=== PATIENT | female | born 1955 | race Caucasian/White ===

== ENCOUNTER → 2024-02-05 14:29 | Outpatient (REF) | payer OTHER, SELFPAY | LOC: HWWDC 14:29 | PROVIDERS: ATTENDING PHYSICIAN Nurse Practitioner | DX: Z12.31 Encounter for screening mammogram for malignant neoplasm of breast (principal) | CPT/HCPCS: 77063; 77067 ==

== ENCOUNTER → 2024-02-24 08:53 | Outpatient (REF) | payer OTHER, SELFPAY | LOC: RAD 08:53 | PROVIDERS: ATTENDING PHYSICIAN Nurse Practitioner | DX: Z13.820 Encounter for screening for osteoporosis (principal) | CPT/HCPCS: 77080 ==

== ENCOUNTER → 2024-03-01 10:57 | Outpatient (REF) | payer OTHER, SELFPAY | LOC: RAD 10:57 | PROVIDERS: ATTENDING PHYSICIAN Physician Assistant Medical; FAMILY PHYSICIAN Internal Medicine | DX: S82.132A Displaced fracture of medial condyle of left tibia, initial encounter for closed fracture (principal); S82.122A Displaced fracture of lateral condyle of left tibia, initial encounter for closed fracture | CPT/HCPCS: 73700 ==

== ENCOUNTER 2024-06-23 10:32 | Outpatient (RCR) | payer OTHER, SELFPAY ==
[2024-06-23] MEDS: LEQVIO 284 MG SC (10:43)
[2024-06-23 10:45] VITALS: BP 114/66
== END 2024-06-24 09:07 | disposition home or self-care (01) ==
LOC: OID 10:32
PROVIDERS: ATTENDING PHYSICIAN Nurse Practitioner; FAMILY PHYSICIAN Internal Medicine
DX: I65.22 Occlusion and stenosis of left carotid artery (principal); I25.10 Atherosclerotic heart disease of native coronary artery without angina pectoris; Z86.73 Personal history of transient ischemic attack (TIA), and cerebral infarction without residual deficits
CPT/HCPCS: 96372; J1306

== ENCOUNTER → 2025-01-19 10:51 | Outpatient (REF) | payer MEDICARE, SELFPAY | LOC: PAVMRI 10:51 | PROVIDERS: ATTENDING PHYSICIAN Physician Assistant Medical; FAMILY PHYSICIAN Internal Medicine | DX: M25.562 Pain in left knee (principal) | CPT/HCPCS: 73721 ==

== ENCOUNTER → 2025-03-17 12:42 | Outpatient (REF) | payer MEDICARE, SELFPAY | LOC: HWRCS 12:42 | PROVIDERS: ATTENDING PHYSICIAN Nurse Practitioner; FAMILY PHYSICIAN Internal Medicine | DX: E78.2 Mixed hyperlipidemia (principal); R06.09 Other forms of dyspnea; R53.83 Other fatigue; R60.0 Localized edema; I34.0 Nonrheumatic mitral (valve) insufficiency; I35.0 Nonrheumatic aortic (valve) stenosis | CPT/HCPCS: 93306 ==

== ENCOUNTER → 2025-03-28 08:28 | Outpatient (REF) | payer MEDICARE, SELFPAY | LOC: HWWDC 08:28 | PROVIDERS: ATTENDING PHYSICIAN Nurse Practitioner; FAMILY PHYSICIAN Internal Medicine | DX: Z12.31 Encounter for screening mammogram for malignant neoplasm of breast (principal) | CPT/HCPCS: 77063; 77067 ==

== ENCOUNTER → 2025-04-14 10:34 | Outpatient (REF) | payer MEDICARE, SELFPAY | LOC: RAD 10:34 | PROVIDERS: ATTENDING PHYSICIAN Physician Assistant Surgical; FAMILY PHYSICIAN Hospitalist | DX: M54.6 Pain in thoracic spine (principal); M54.14 Radiculopathy, thoracic region | CPT/HCPCS: 72072 ==

== ENCOUNTER → 2025-04-28 08:23 | Outpatient (REF) | payer MEDICARE, SELFPAY ==
[2025-04-28] VITALS (10 sets, daily range): BP systolic 102–121; BP diastolic 62–80
[2025-04-28] MEDS: ATIVAN 0.5 MG PO (09:05)
[2025-04-28 09:08] LABS: Hematocrit 40.1 % (37.0-47.0); Hemoglobin 13.2 g/dL (12.0-16.0); Mean Corp Hgb Conc. 32.9 g/dL (33.0-37.0); Mean Corpuscular Volume 86.4 fL (81.0-99.0); Nucleated Red Blood Cells % 0 %; Platelet Count 405 10^3/uL (130-400); Red Cell Dist. Width 13.9 % (11.5-14.5)
[2025-04-28 09:11] LABS: INR 0.88; PT 12.4 Sec (11.4-14.6)
== END ==
LOC: RADI 08:23
PROVIDERS: ATTENDING PHYSICIAN Internal Medicine Hematology & Oncology; FAMILY PHYSICIAN Hospitalist
DX: D47.2 Monoclonal gammopathy (principal); D68.8 Other specified coagulation defects
CPT/HCPCS: 36415; 38222; 77012; 85025; 85610; 88305; 88311; 88312; 88313

== ENCOUNTER → 2025-05-30 12:31 | Outpatient (REF) | payer MEDICARE, SELFPAY ==
[2025-05-30 12:50] VITALS: BP 113/71; BP_SYST 64
== END ==
LOC: RADI 12:31
PROVIDERS: ATTENDING PHYSICIAN Internal Medicine Hematology & Oncology; FAMILY PHYSICIAN Hospitalist
DX: E85.9 Amyloidosis, unspecified (principal); D47.2 Monoclonal gammopathy
CPT/HCPCS: 49180; 76942; 88305; 88313

== ENCOUNTER 2025-06-08 14:54 | Emergency (ER) | payer MEDICARE, SELFPAY ==
[2025-06-08 15:08] VITALS: BP 148/82
--- NOTE | 2025-06-08 16:47 | ED.GENMED ---
History of Present Illness
General
Chief Complaint: Fall
Time Seen by Provider: 06/08/25 16:47
History of Present Illness
History of Present Illness:
FOCUSED PAST MEDICAL HISTORY
- M�ni�re's, hyperlipidemia, IBS, gastric bypass
REVIEW OF OLD RECORDS
- The patient had biopsy at the abdominal fat pad for evaluation of amyloidosis 9 days ago by IR
Note:
CHIEF COMPLAINT(S)
Patient reports falling and experiencing pain primarily in the lower back area, specifically on the left side.
HISTORY OF PRESENT ILLNESS
The patient is a 70-year-old female who presented after a fall this morning at approximately 10:00 AM. She reports stumbling while descending the last three steps of an 18-step staircase in her home, which is situated above a two-car garage. She did
not lose consciousness and denies head trauma. After the fall, she remained on the floor for about 30 minutes before managing to get up. The patient reports pain primarily in the lower back on the left side. Pain intensity increases with movement,
and she has a decreased active range of motion due to pain. She denies neck pain, thoracic spine pain, and craniofacial trauma. She traveled to the hospital by car, though it was difficult due to the pain.
Relevant past medical history includes the presence of a pain pump for chronic pain management and a history of blood clots for which she is on Brilinta.
The patient reports having taken two oxycodone 7.5 mg tablets at 11:00 AM without adequate relief. She indicates the pain is significant enough to request additional pain management.
ADDITIONAL HISTORY OBTAINED FROM SOURCES OTHER THAN THE PATIENT
Information provided by the patients spouse confirmed that she fell this morning while at home.
CHRONIC MEDICAL CONDITIONS SIGNIFICANTLY AFFECTING CARE
Patient has a history of blood clots and is currently on Brilinta.
MEDICATIONS
The patient is currently on Brilinta for blood clots and uses a morphine pain pump for chronic pain management. She also took two oxycodone 7.5 mg at approximately 11:00 AM today for pain relief.
REVIEW OF SYSTEMS
- Musculoskeletal: Reports lower back pain on the left side, decreases range of motion due to pain.
- Gastrointestinal: Denies abdominal tenderness except minimal left-abdominal tenderness.
- Neurological: Denies head trauma or loss of consciousness.
PHYSICAL EXAM
General: The patient appears uncomfortable.
Skin: Warm, dry.
Head: Normocephalic, atraumatic.
Neck: Supple, trachea midline. No cervical spine tenderness.
Eye Ears, nose, mouth, and throat: Oral mucosa moist.
Cardiovascular: Normal peripheral perfusion, no edema.
Respiratory: Respirations are non-labored.
Gastrointestinal: Abdomen nondistended, minimal left-abdominal tenderness.
Back: Tenderness primarily to the left TVA region. Decreased active range of motion of thoracolumbar spine due to pain at the left flank, no significant midline L-spine tenderness
Musculoskeletal: Normal ROM otherwise.
Neurological: Oriented to person, place, time, and situation. No focal neurological deficits observed.
PROBLEM LIST
Acute:
- Fall with resulting lower back pain
- Minimal left abdominal tenderness
Chronic:
- History of blood clots on Brilinta
- Chronic pain requiring a pain pump
PLAN
- Perform a CT scan of the abdomen and pelvis to assess for any internal injury or fracture, especially given the fall and location of pain.
- Initiate IV access for potential pain medication administration.
- Provide additional pain management through IV medication as needed, considering patients current use of oral narcotics.
DIFFERENTIAL DIAGNOSIS
The Differential Diagnosis includes, in no particular order and is not limited to:
- Lumbar spine injury or fracture
- Muscular strain or sprain
- Soft tissue injury
- Internal organ injury
- Left renal or ureter trauma
- Chronic back pain exacerbation
- Sacroiliac joint dysfunction
- Costovertebral angle tenderness
- Osteoporosis-related fracture
- Vertebral compression fracture
RADIOLOGY
- CT imaging obtained
LABS
- White count 12.1, hemoglobin 13.6, bicarb 32, sodium 133, normal renal function
UPDATE
SUMMARY OF ENCOUNTER
The patient, a 70-year-old female, presented to the emergency department after a fall resulting in pain primarily located in the lower back. A CT scan was performed, revealing a fracture of the L2 vertebra. There was no evidence of spinal cord
damage or significant displacement. The patient, who is already on a pain medication regimen due to chronic pain, expressed a need for additional pain relief during the visit. After discussing management options, and because the fracture did not
require surgery or an inpatient stay, it was determined that outpatient management was appropriate.
DISPOSITION
Discharge.
ASSESSMENT
L2 vertebra fracture with no spinal cord damage or significant displacement.
EMERGENCY TREATMENTS ADMINISTERED
A dose of pain medication was administered in the emergency department for acute pain management.
PLAN
The plan includes rest and outpatient management for the L2 vertebra fracture. An additional dose of pain medication will be provided before discharge. The patient is advised to use ice or heat for pain relief at home as needed.
FOLLOW-UP INSTRUCTIONS
The patient is advised to follow up with her spine doctor, Dr. Marco Antonio Jenkins, and to contact the office by Friday.
MEDICATION RECONCILIATION
An additional dose of pain medication was administered during the visit. The patient is already using her prescribed pain management regimen, which includes a morphine pump and oxycodone.
MEDICAL DECISION MAKING
- Number and Complexity of Problems Addressed: Chronic conditions affecting care include a history of blood clots and chronic pain. Differential diagnosis considered lumbar spine injury or fracture, muscular strain, soft tissue injury, and
osteoporosis-related fracture.
- Data:
Category 1:
My independent review of the CT scan indicates a fracture of the L2 vertebra without cord involvement or significant displacement.
Category 2:
Information was confirmed with the patients spouse regarding the history of the fall.
- Risk:
Prescription drug management involved an additional dose of pain medication due to acute pain. Consideration of Admission/Observation: Escalation of care, including admission/observation, was considered given the complexity and risk of the patients
presenting complaint, exam findings, and underlying comorbidities. However, ultimately I feel the patient is safe for outpatient management with close follow-up. Reasoning: Work-up reassuring, does not reveal any acute life/organ-threatening
processes, patients symptoms well controlled upon reevaluation, reexamination is reassuring, vitals are stable, patient agreeable with discharge, reliable for follow-up.
DIAGNOSIS
L2 vertebra fracture (ICD-10: S32.02XA).
The patient was given 2 rounds of Dilaudid by IV
She is known to pain management already and will follow-up with Dr. Jenkins as
Past History
Past History
ED Past Medical History: Hypercholesterolemia and Other
ED Past Surgical History: Other
Social History
Tobacco: Non-smoker
Personal:
Living: with family
Family History
Family History: Other
Phy Exam
Physical Exam
Physical Exam:
See HPI
Course
Orders/Labs/Results
Orders:
Orders
06/08/25 17:26
HYDROmorphone [Dilaudid] 1 mg IV NOW STA
Ondansetron Injectable [Zofran] 4 mg IV NOW STA
06/08/25 17:27
CT Abd/pelvis W Iv Cont Urgent
Comment:
Reason For Exam: L flank pain trauma
06/08/25 18:00
Basic Metabolic Panel Urgent
Complete Blood Count/With Diff Urgent
06/08/25 20:30
HYDROmorphone [Dilaudid] 1 mg IV NOW STA
Abnormal Lab Results
06/08/25
18:00
WBC 12.1 H 10^3/uL
(4.8-10.8)
Abs Immat Gran (auto) 0.1 H 10^3/uL
(0-0.05)
Absolute Neuts (auto) 7.7 H 10^3/uL
(1.4-6.5)
Absolute Monos (auto) 0.9 H 10^3/uL
(0.1-0.6)
Immature Gran % 0.8 H %
(0-0.5)
Sodium 133 L mmol/L
(135-145)
Chloride 97 L mmol/L
(98-107)
Carbon Dioxide 32 H mmol/L
(22-30)
06/08/25 18:00
06/08/25 18:00
Vital Signs
Initial and Last Documented VS:
Initial Vital Signs
Temp Pulse Resp BP Pulse Ox
36.6 C 90 20 148/82 97
06/08/25 15:08 06/08/25 15:08 06/08/25 15:08 06/08/25 15:08 06/08/25 15:08
Last Documented Vital Signs
Temp Pulse Resp BP Pulse Ox
36.6 C 80 14 140/80 94
06/08/25 15:08 06/08/25 20:03 06/08/25 20:03 06/08/25 20:03 06/08/25 20:03
*Pulse Oximetry
SaO2: 97
Oxygen Mode of Delivery: Room air
Patient hypoxic: no
*Critical Care Note
Total Time (30-74mins, 75-104mins- exclusive of procedures): Not Applicable
ED Attending Note
-
Portions of this chart may have been created with voice recognition software.� Occasional wrong word or��sound alike� substitutions may have occurred due to the inherent limitations of voice recognition software.
Discharge Plan
Departure
Prescriptions:
No Action
ascorbic acid (vitamin C) [Vitamin C] 500 MG tablet
1,000 mg PO DAILY
ropinirole 0.5 MG tablet
0.5 mg PO HS
duloxetine 30 MG capsule,delayed release(DR/EC)
60 mg PO DAILY
melatonin 5 MG tablet
5 mg PO HS PRN (Reason: insomnia)
gabapentin 300 MG capsule
900 mg PO TID
cyanocobalamin (vitamin B-12) 2,500 MCG tablet,chewable
2,500 mcg PO Daily
acetaminophen [Tylenol Extra Strength] 500 MG tablet
500 mg PO Q4HPRN PRN (Reason: Mild pain) Qty: 1 0RF
ticagrelor [Brilinta] 60 MG tablet
60 mg PO BID Qty: 0 0RF
lorazepam 0.5 MG tablet
0.5 mg PO HS
Vitamin D
1 unit PO DAILY
Patient Comments:
unknown dosage
hydrocodone-acetaminophen 7.5-325 mg Tablet
1 tab PO .Q6H PRN (Reason: pain)
metoprolol tartrate 25 mg Tablet
25 mg PO DAILY
Patient Own Morphine Pain Pump
0 dose intrathecal DIRECTED
Rx Instructions:
internal morphine pain pump pt unsure of dose
Referrals:
Maritza Aceves MD [Family Provider, Internal Medicine]
Interventions
Interventions:
*Risk Screen - Suicide Last Done: 06/08/25 15:08
*General Assessment Last Done: 06/08/25 15:08
*Neglect/Abuse Screening Last Done: 06/08/25 15:08
ED-Musculoskeletal Assessment Last Done: 06/08/25 16:33
ED- Neurological Assessment Last Done: 06/08/25 16:33
Discharge Date and Time
Print Language: JAPANESE
[2025-06-08] MEDS: DILAUDID 1 MG IV ×2 (18:07→20:35)
[2025-06-08] MEDS: ZOFRAN 4 MG IV (18:07)
[2025-06-08 18:10] LABS: Hematocrit 41.2 % (37.0-47.0); Hemoglobin 13.6 g/dL (12.0-16.0); Mean Corp Hgb Conc. 33.0 g/dL (33.0-37.0); Mean Corpuscular Volume 85.3 fL (81.0-99.0); Nucleated Red Blood Cells % 0 %; Platelet Count 360 10^3/uL (130-400); Red Cell Dist. Width 13.4 % (11.5-14.5)
[2025-06-08 18:23] LABS: Blood Urea Nitrogen 14 mg/dl (7-17); Calcium 9.2 mg/dl (8.4-10.2); Carbon Dioxide 32 mmol/L (22-30); Chloride 97 mmol/L (98-107); Glucose 89 mg/dl (70-99); Potassium 3.7 mmol/L (3.5-5.1); Sodium 133 mmol/L (135-145); eGFR > 60.00
[2025-06-08 20:03] VITALS: BP 140/80
== END 2025-06-08 20:48 | disposition home or self-care (01) ==
LOC: EMR 14:54
PROVIDERS: EMERGENCY PHYSICIAN Emergency Medicine; FAMILY PHYSICIAN Hospitalist
DX: S32.028A Other fracture of second lumbar vertebra, initial encounter for closed fracture (principal); W18.39XA Other fall on same level, initial encounter; E78.00 Pure hypercholesterolemia, unspecified; Z79.02 Long term (current) use of antithrombotics/antiplatelets; Z86.718 Personal history of other venous thrombosis and embolism; Z98.84 Bariatric surgery status
CPT/HCPCS: 96374; 96375; 96376; 99284; 74177; 80048; 85025; Q9967

== ENCOUNTER → 2025-06-25 09:21 | Outpatient (REF) | payer MEDICARE, SELFPAY | LOC: RAD 09:21 | PROVIDERS: ATTENDING PHYSICIAN Nurse Practitioner; FAMILY PHYSICIAN Internal Medicine | DX: M54.16 Radiculopathy, lumbar region (principal) | CPT/HCPCS: 72131 ==